=== PATIENT | male | born 1945 | race Caucasian/White ===

== ENCOUNTER 2022-09-12 18:23 | Emergency (ER) | payer MEDICARE ==
[2022-09-12] MEDS ORDERED: Erythromycin Base 0.5% Oint 1 GM TUBE ONE (19:32)
== END 2022-09-12 19:40 | disposition home or self-care (01) ==
LOC: NAV ERS 18:23
DX: H10.9 Unspecified conjunctivitis (principal); I25.10 Atherosclerotic heart disease of native coronary artery without angina pectoris; F17.290 Nicotine dependence, other tobacco product, uncomplicated
CPT/HCPCS: 99282